=== PATIENT | male | born 1970 | race Caucasian/White ===

== ENCOUNTER 2017-02-15 13:24 | Emergency (ER) | payer OTHER ==
[~2017-02-15] VITALS: Ht 185.4 cm; Wt 117.9 kg
--- NOTE | ~2017-02-15 | EKG ---
[address] [employer] 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 : 1970 Requested By: Ignacia Cano Order Number: [id number] MD: Baldo Mancini Measurements Intervals [place] Rate: 97 P: 38 CA: 154 QRS: -13 QRSD: 87 T: 9 QT: 337 QTc: 428 Interpretive Statements Sinus rhythm Probable left atrial enlargement Low voltage, precordial leads Left ventricular hypertrophy Compared to ECG 02/05/1993 21:22:00 Low QRS voltage now present Sinus tachycardia no longer present Electronically Signed On 02-16-2017 12:49:40 CDT by Baldo Mancini [email or web address] <ELECTRONICALLY SIGNED> By: Baldo Mancini MD 02/16/17 1249 1337 133 Baldo Mancini MD /EPI
[~2017-02-15 13:24] MED LIST: SULFACETAMIDE 115 M1 OP; VICODIN 5-5001 EACH PO
[2017-02-15 14:19] LABS: ABSOLUTE NEUTROPHILS 6.3 thou/uL (1.4-8.2); BASOPHILS 0.6 % (0.0-2.0); EOSINOPHILS 1.1 % (0.0-3.0); HEMATOCRIT 47.3 % (42.0-52.0); HEMOGLOBIN 16.7 gm/dL (14.0-18.0); LYMPHOCYTES 24.3 % (24.0-44.0); MCH 34.6 pg (26.0-34.0); MCHC 35.3 g/dL (28.0-37.0); MCV 97.9 fL (80.0-100.0); MONOCYTES 6.2 % (1.0-8.0); PLATELET COUNT 207 thou/uL (150-400); POLYS 67.8 % (36.0-66.0); RBC 4.83 mil/uL (4.50-6.00); RDW 15.1 % (10.5-14.5); WBC 9.3 thou/uL (4.0-11.0)
[2017-02-15 14:24] LABS: ANION GAP 9 mmol/L (7-16); BUN 6 mg/dL (7-18); CALCIUM 10.2 mg/dL (8.5-10.1); CHLORIDE 100 mmol/L (98-107); CO2 25 mmol/L (21-32); CREATININE 0.8 mg/dL (0.7-1.3); GLUCOSE 95 mg/dL (74-106); POTASSIUM 4.2 mmol/L (3.5-5.1); SODIUM 134 mmol/L (136-145)
[2017-02-15 14:29] LABS: MANUAL DIFF NO
[2017-02-15 14:33] LABS: TROPONIN-I < 0.04 ng/mL (<0.04-0.07)
[2017-02-15 15:27] VITALS: BP 138/93
== END 2017-02-15 15:25 | disposition home or self-care (01) ==
LOC: ER 13:24
PROVIDERS: Emergency Medicine
DX: R53.1 Weakness (principal); R20.0 Anesthesia of skin; R20.2 Paresthesia of skin; F17.210 Nicotine dependence, cigarettes, uncomplicated; F10.99 Alcohol use, unspecified with unspecified alcohol-induced disorder

== ENCOUNTER 2017-09-25 19:06 | Inpatient (IN) | payer OTHER ==
[~2017-09-25] VITALS: Ht 185.4 cm; Wt 109.8 kg
--- NOTE | ~2017-09-25 | EKG ---
[address] [place] [address] ELECTROCARDIOGRAM REPORT Name: BERNARD RED Room #: 203-P ADM IN M.R.#: [id number] Admission: 09/25/17 Attend Phys: Shukri Hodges MD Discharge: Date of : 70 Report #: [id number] THIS REPORT FOR: //name// 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 : 1970 Requested By: Nikhil Grimm Order Number: [id number] MD: Baldo Mancini Measurements Intervals [place] Rate: 76 P: 23 IL: 150 QRS: -12 QRSD: 96 T: 11 QT: 391 QTc: 440 Interpretive Statements Sinus rhythm Low voltage, precordial leads Left ventricular hypertrophy Baseline wander in lead(s) V1 Compared to ECG 02/15/2017 13:37:52 No significant changes Electronically Signed On 09-26-2017 8:53:09 DIRECTOR OF INVESTIGATIONS by Baldo Mancini [email or web address] <ELECTRONICALLY SIGNED> By: Baldo Mancini MD 09/26/17 0853 12 12 Baldo Mancini MD /EPI
--- NOTE | ~2017-09-25 | HC ---
[facility] [place] [address] CONSULTATION Name: BERNARD RED Room #: 203-P [facility] IN M.R.#: [id number] Admission: 09/25/17 Attend Phys: Shukri Hodges MD Discharge: 09/27/17 Date of : 70 Report #: [id number] THIS REPORT FOR: //name// CC: Shukri Hodges [facility] physician/PCP DATE OF SERVICE: 09/27/2017 HISTORY OF PRESENT ILLNESS: This gentleman has been admitted in part for alcohol detoxification. When he presented, he had not had any alcohol in nearly 20 hours. There was concern about comorbid depression and anxiety. He was given Ativan detox and is not having Ativan today, but has still battled insomnia and anxiety a bit. He is hopeful for the future and motivated to put together a plan for sobriety. PAST PSYCHIATRIC HISTORY: The patient has not seen a psychiatrist since he was in grade school. He has, however, seen a therapist at various stretches over the years. He notes that he has been able to sustain nearly several months of sobriety on number of occasions. There is nothing remarkable about his behavior or circumstances over such stretches as he does not remember significant benefit from medication or even attendance in 12 step groups. It would seem that it was a negative event that would sometimes result in the relapse. He has had some trouble with depression and anxiety all the way back to grade school, "before I ever even started using alcohol." More lately though, insomnia has been something that will cause difficulty too when he tries to detox or practise sobriety. FAMILY HISTORY: Notable for depression, anxiety and alcohol use disorder. ALLERGIES: There are no known allergic reaction type allergies. He did have ADVERSE DRUG REACTION TO NALTREXONE and this was not in the context of concurrent use of opioids or drinking alcohol. PAST MEDICAL HISTORY: Secondary to alcoholism. SOCIAL HISTORY: He is newly . He has a girlfriend of a couple of months now, somebody who he is actually known for a number of years. She is also in recovery. She is a motor vehicle representative in pharmacological sales and sounds as though she has been good support and resource for him. He has a young daughter that he wants to provide for. Alcohol is drug of choice, typically could have up to a 12 pack of beer and 10-12 drinks of vodka. MENTAL STATUS EXAM: male, endomorphic build, casually dressed, depressed mood, restricted affect. No involuntary movements. Normal rate and rhythm of speech, he is articulate. No suicidal ideation, no homicidal [facility] [address] [place] [address] CONSULTATION Name: BERNARD RED Room #: 203-P [facility] IN M.R.#: [id number] Admission: 09/25/17 Attend Phys: Shukri Hodges MD Discharge: 09/27/17 Date of : 70 Report #: [id number] ideation, no hallucinations, no delusions. Insight and judgment fair. DIAGNOSES: AXIS: Alcohol use disorder; primary insomnia; major depressive disorder, recurrent, moderate; generalized anxiety disorder, rule out posttraumatic stress disorder. RECOMMENDATIONS: We will use Vistaril for breakthrough anxiety and insomnia. We will start on gabapentin for anxiety and also help with alcohol withdrawal and perhaps alcohol craving. Sertraline will be used for depression and anxiety too. He has had an ADVERSE DRUG REACTION TO REVIA/NALTREXONE. He may be a Campral candidate down the road. It is worth noting that the last time he was on sertraline, he was only on 25 mg. He is welcome to follow up in our office. I have recommended [facility] as an excellent substance abuse counselor. Also, encouraging him to utilize AA and/or other 12 step groups. It is a pleasure to participate in the care of this gentleman with you. <ELECTRONICALLY SIGNED> By: Frank Jarrett MD 11/09/17 0833 [id number] [id number] Frank Jarrett MD /nt
[~2017-09-25 19:06] MED LIST changes: +FLEXERIL PO; +ROXICODONE5 M2 PO
[2017-09-25 19:08] VITALS: BP 148/92
[2017-09-25] MEDS ORDERED: NOHOMEMEDICATIONS (19:19)
[2017-09-25 19:39] LABS: ABSOLUTE NEUTROPHILS 5.6 thou/uL (1.4-8.2); BASOPHILS 1.1 % (0.0-2.0); EOSINOPHILS 0.7 % (0.0-3.0); HEMATOCRIT 46.2 % (42.0-52.0); HEMOGLOBIN 16.3 gm/dL (14.0-18.0); LYMPHOCYTES 22.5 % (24.0-44.0); MCH 33.1 pg (26.0-34.0); MCHC 35.4 g/dL (28.0-37.0); MCV 93.4 fL (80.0-100.0); PLATELET COUNT 174 thou/uL (150-400); POLYS 69.7 % (36.0-66.0); RBC 4.95 mil/uL (4.50-6.00); RDW 17.8 % (10.5-14.5); WBC 8.1 thou/uL (4.0-11.0)
[2017-09-25 19:45] LABS: ANION GAP 12 mmol/L (7-16); BUN 7 mg/dL (7-18); CALCIUM 10.4 mg/dL (8.5-10.1); CHLORIDE 96 mmol/L (98-107); CO2 26 mmol/L (21-32); CREATININE 0.8 mg/dL (0.7-1.3); GLUCOSE 80 mg/dL (74-106); POTASSIUM 3.2 mmol/L (3.5-5.1); SODIUM 134 mmol/L (136-145)
[2017-09-25 19:54] LABS: ALBUMIN 3.7 g/dL (3.4-5.0); MAGNESIUM 1.5 mg/dL (1.8-2.4); SALICYLATE 4.4 mg/dL (2.8-20.0); SGOT 91 U/L (15-37); SGPT 106 U/L (30-65); TOTAL PROTEIN 7.6 g/dL (6.4-8.2); TROPONIN-I < 0.04 ng/mL (<0.06)
[2017-09-25 19:59] LABS: URINE BILIRUBIN NEGATIVE (Negative); URINE BLOOD NEGATIVE (Negative); URINE CLARITY CLEAR; URINE COLOR YELLOW; URINE GLUCOSE-RANDOM* NEGATIVE (Negative); URINE KETONES 2+ (Negative); URINE LEUKOCYTES-REFLEX NEGATIVE (Negative); URINE NITRITE-REFLEX NEGATIVE (Negative); URINE PROTEIN (DIPSTICK) NEGATIVE (Negative); URINE SPECIFIC GRAVITY 1.015 (1.005-1.035); URINE UROBILINOGEN 0.2 E.U./dl (0.2-1.0)
[2017-09-25 20:08] LABS: AMP/METHAMP Negative (Negative); BARBITURATES Negative (Negative); BENZODIAZEPINES Negative (Negative); COCAINE Negative (Negative); METHADONE Negative (Negative); OPIATES Negative (Negative); PCP Negative (Negative)
[2017-09-25 21:52] VITALS: BP 152/92
[2017-09-25 22:00] VITALS: BP 168/101
[2017-09-25 23:47] VITALS: BP 140/90
[2017-09-26 00:43] LABS: POTASSIUM 3.5 mmol/L (3.5-5.1)
[2017-09-26 04:07] VITALS: BP 147/97
[2017-09-26 05:54] LABS: CALCIUM 9.5 mg/dL (8.5-10.1); CREATININE 0.6 mg/dL (0.7-1.3); MAGNESIUM 2.1 mg/dL (1.8-2.4); POTASSIUM 3.7 mmol/L (3.5-5.1)
[2017-09-26 07:11] VITALS: BP 144/95
[2017-09-26 12:09] VITALS: BP 138/92
[2017-09-26 16:25] VITALS: BP 135/100
[2017-09-26 19:09] VITALS: BP 137/99
[2017-09-27 03:46] VITALS: BP 133/94
[2017-09-27 03:53] LABS: ABSOLUTE NEUTROPHILS 3.3 thou/uL (1.4-8.2); BASOPHILS 0.9 % (0.0-2.0); EOSINOPHILS 1.8 % (0.0-3.0); HEMATOCRIT 44.1 % (42.0-52.0); LYMPHOCYTES 31.7 % (24.0-44.0); MCH 32.6 pg (26.0-34.0); MCV 95.7 fL (80.0-100.0); MONOCYTES 4.4 % (1.0-8.0); PLATELET COUNT 130 thou/uL (150-400); POLYS 61.2 % (36.0-66.0); RBC 4.61 mil/uL (4.50-6.00); WBC 5.4 thou/uL (4.0-11.0)
[2017-09-27 04:13] LABS: ALBUMIN 2.7 g/dL (3.4-5.0); CREATININE 0.6 mg/dL (0.7-1.3); MAGNESIUM 1.8 mg/dL (1.8-2.4); POTASSIUM 3.6 mmol/L (3.5-5.1); TOTAL BILIRUBIN 0.9 mg/dL (<0.1-1.0); TOTAL PROTEIN 6.1 g/dL (6.4-8.2)
[2017-09-27 07:28] VITALS: BP 143/102
[2017-09-27 16:11] VITALS: BP 137/91
[2017-09-27 16:41] VITALS: BP 137/91
[2017-09-27] MEDS ORDERED: NEURONTIN 300300 M1 PO (17:09)
[2017-09-27] MEDS ORDERED: ZOLOFT25 MG PO (17:10)
[2017-09-27] MEDS ORDERED: VISTARIL 25 MG25 M1 PO (17:10)
[2017-09-27 17:23] VITALS: BP 137/91
== END 2017-09-27 18:30 | disposition home or self-care (01) | DRG 897 ==
LOC: ER 19:06 → 2N 20:04 → EROBS 20:04 → 2N 21:50 → ENTRNSPT 09-27 17:43 → 2N 09-27 18:30
PROVIDERS: Emergency Medicine; Hospitalist; Nurse Practitioner Acute Care
DX: F10.230 Alcohol dependence with withdrawal, uncomplicated (principal); F33.1 Major depressive disorder, recurrent, moderate; F17.210 Nicotine dependence, cigarettes, uncomplicated; E66.9 Obesity, unspecified; G47.00 Insomnia, unspecified; F41.1 Generalized anxiety disorder; F43.10 Post-traumatic stress disorder, unspecified; E83.42 Hypomagnesemia; E87.6 Hypokalemia; K70.10 Alcoholic hepatitis without ascites; Z68.31 Body mass index [BMI] 31.0-31.9, adult
CPT/HCPCS: 10081

== ENCOUNTER 2018-12-22 11:43 | Emergency (ER) | payer OTHER ==
[~2018-12-22] VITALS: Ht 185.4 cm; Wt 99.8 kg
[~2018-12-22 11:43] MED LIST changes: +NEURONTIN 300300 M1 PO; +NOHOMEMEDICATIONS; +VISTARIL 25 MG25 M1 PO; +ZOLOFT25 MG PO
[2018-12-22 12:18] LABS: ABSOLUTE NEUTROPHILS 6.2 thou/uL (1.4-8.2); BASOPHILS 1.1 % (0.0-2.0); EOSINOPHILS 3.5 % (0.0-3.0); HEMATOCRIT 45.2 % (42.0-52.0); HEMOGLOBIN 15.5 gm/dL (14.0-18.0); MCH 34.4 pg (26.0-34.0); MCHC 34.3 g/dL (28.0-37.0); MCV 100.2 fL (80.0-100.0); MONOCYTES 7.4 % (1.0-8.0); PLATELET COUNT 267 thou/uL (150-400); RBC 4.51 mil/uL (4.50-6.00); RDW 13.4 % (10.5-14.5); WBC 8.7 thou/uL (4.0-11.0)
[2018-12-22 12:18] LABS: URINE BILIRUBIN NEGATIVE (Negative); URINE BLOOD NEGATIVE (Negative); URINE CLARITY CLEAR; URINE COLOR YELLOW; URINE GLUCOSE-RANDOM* NEGATIVE (Negative); URINE KETONES NEGATIVE (Negative); URINE LEUKOCYTES NEGATIVE (Negative); URINE NITRITE NEGATIVE (Negative); URINE PROTEIN (DIPSTICK) NEGATIVE (Negative); URINE UROBILINOGEN 0.2 E.U./dl (0.2-1.0)
[2018-12-22 12:28] LABS: AMP/METHAMP Negative (Negative); BARBITURATES Negative (Negative); BENZODIAZEPINES POSITIVE (Negative); COCAINE Negative (Negative); METHADONE Negative (Negative); OPIATES Negative (Negative); PCP Negative (Negative)
[2018-12-22 12:29] LABS: ANION GAP 9 mmol/L (7-16); BUN 9 mg/dL (7-18); CALCIUM 10.1 mg/dL (8.5-10.1); CHLORIDE 103 mmol/L (98-107); CO2 27 mmol/L (21-32); CREATININE 0.8 mg/dL (0.7-1.3); GLUCOSE 100 mg/dL (74-106); POTASSIUM 4.3 mmol/L (3.5-5.1); SODIUM 139 mmol/L (136-145)
[2018-12-22 12:36] LABS: ALBUMIN 3.4 g/dL (3.4-5.0); SGOT 41 U/L (15-37); SGPT 117 U/L (30-65); TOTAL BILIRUBIN 0.4 mg/dL (<0.1-1.0); TOTAL PROTEIN 6.9 g/dL (6.4-8.2)
[2018-12-22] MEDS ORDERED: LIBRAX CAPSULE1 EACH PO (15:59)
[2018-12-22] MEDS ORDERED: ELIMITE60 GM TOP (16:08)
[2018-12-22 16:37] VITALS: BP 108/75
--- NOTE | 2018-12-22 17:16 | EKG ---
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[place] : 1970 Requested By: Tran Mcduffie Order Number: [id number] MD: Baldo Mancini Measurements Intervals [place] Rate: 111 P: 50 IL: 153 QRS: -19 QRSD: 100 T: 18 QT: 351 QTc: 477 Interpretive Statements Sinus tachycardia Borderline left axis deviation Low voltage, precordial leads Borderline prolonged QT interval Compared to ECG 09/25/2017 19:13:56 Sinus rhythm no longer present Left ventricular hypertrophy no longer present Electronically Signed On 12-22-2018 17:16:40 CDT by Baldo Mancini [email or web address] ��������������������������������������������� <ELECTRONICALLY SIGNED> ���������������������������������������� By: Baldo Mancini MD ��������������������������������������������� 12/22/18 1716 1200 1200 Baldo Mancini MD /SHEYLA
== END 2018-12-22 16:38 | disposition home or self-care (01) ==
LOC: ER 11:43
PROVIDERS: Physician Assistant
DX: F10.239 Alcohol dependence with withdrawal, unspecified (principal); T14.8XXA Other injury of unspecified body region, initial encounter; W57.XXXA Bitten or stung by nonvenomous insect and other nonvenomous arthropods, initial encounter; Y93.89 Activity, other specified; Y92.89 Other specified places as the place of occurrence of the external cause; Y99.8 Other external cause status

== ENCOUNTER 2019-02-20 22:13 | Emergency (ER) | payer OTHER ==
[~2019-02-20] VITALS: Ht 185.4 cm; Wt 95.3 kg
[~2019-02-20 22:13] MED LIST changes: +ELIMITE60 GM TOP; +LIBRAX CAPSULE1 EACH PO
[2019-02-21 07:18] VITALS: BP 142/68
== END 2019-02-21 07:18 | disposition home or self-care (01) ==
LOC: ER 22:13
DX: S40.021A Contusion of right upper arm, initial encounter (principal); F10.129 Alcohol abuse with intoxication, unspecified; S09.90XA Unspecified injury of head, initial encounter; F41.9 Anxiety disorder, unspecified; F32.9 Major depressive disorder, single episode, unspecified; F17.210 Nicotine dependence, cigarettes, uncomplicated; Y04.8XXA Assault by other bodily force, initial encounter; Y93.89 Activity, other specified; Y92.89 Other specified places as the place of occurrence of the external cause; Y99.8 Other external cause status

== ENCOUNTER 2019-02-21 22:40 | Emergency (ER) | payer OTHER ==
[~2019-02-21] VITALS: Ht 185.4 cm; Wt 95.3 kg
[2019-02-22 03:30] VITALS: BP 152/81
== END 2019-02-22 03:30 | disposition home or self-care (01) ==
LOC: ER 22:40
DX: M79.601 Pain in right arm (principal); F10.10 Alcohol abuse, uncomplicated; Y90.9 Presence of alcohol in blood, level not specified; F41.9 Anxiety disorder, unspecified; F32.9 Major depressive disorder, single episode, unspecified; F17.210 Nicotine dependence, cigarettes, uncomplicated

== ENCOUNTER 2019-05-18 22:35 | Emergency (ER) | payer OTHER ==
[~2019-05-18] VITALS: Ht 185.4 cm; Wt 95.3 kg
[2019-05-18 23:37] LABS: URINE BILIRUBIN NEGATIVE (Negative); URINE BLOOD NEGATIVE (Negative); URINE CLARITY CLEAR; URINE COLOR YELLOW; URINE GLUCOSE-RANDOM* NEGATIVE (Negative); URINE KETONES TRACE (Negative); URINE LEUKOCYTES-REFLEX NEGATIVE (Negative); URINE NITRITE-REFLEX NEGATIVE (Negative); URINE PROTEIN (DIPSTICK) NEGATIVE (Negative); URINE UROBILINOGEN 0.2 E.U./dl (0.2-1.0)
[2019-05-18 23:43] LABS: ABSOLUTE NEUTROPHILS 2.5 thou/uL (1.4-8.2); EOSINOPHILS 1.8 % (0.0-3.0); HEMATOCRIT 48.5 % (42.0-52.0); HEMOGLOBIN 16.5 gm/dL (14.0-18.0); LYMPHOCYTES 50.7 % (24.0-44.0); MCH 32.2 pg (26.0-34.0); MCHC 33.9 g/dL (28.0-37.0); MCV 94.9 fL (80.0-100.0); MONOCYTES 5.5 % (1.0-8.0); PLATELET COUNT 253 thou/uL (150-400); RBC 5.11 mil/uL (4.50-6.00); RDW 14.2 % (10.5-14.5)
[2019-05-18 23:48] LABS: ANION GAP 14 mmol/L (7-16); BUN 6 mg/dL (7-18); CALCIUM 8.9 mg/dL (8.5-10.1); CHLORIDE 100 mmol/L (98-107); CO2 24 mmol/L (21-32); CREATININE 0.8 mg/dL (0.7-1.3); GLUCOSE 146 mg/dL (74-106); POTASSIUM 3.7 mmol/L (3.5-5.1); SODIUM 138 mmol/L (136-145)
[2019-05-18 23:52] LABS: AMP/METHAMP Negative (Negative); BARBITURATES Negative (Negative); BENZODIAZEPINES Negative (Negative); COCAINE Negative (Negative); METHADONE Negative (Negative); OPIATES Negative (Negative); PCP Negative (Negative)
[2019-05-18 23:54] LABS: ALBUMIN 3.4 g/dL (3.4-5.0); DIRECT BILIRUBIN 0.1 mg/dL (<0.1-0.3); SGOT 54 U/L (15-37); SGPT 33 U/L (30-65); TOTAL BILIRUBIN 0.4 mg/dL (<0.1-1.0); TOTAL PROTEIN 6.9 g/dL (6.4-8.2); TROPONIN-I <0.06 ng/mL (<0.06)
[2019-05-19 06:04] VITALS: BP 111/73
--- NOTE | 2019-05-19 17:25 | EKG ---
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 RN : 1970 Requested By: Carlos Chamberlain Order Number: [id number] MD: Isiah Roper Measurements Intervals [place] Rate: 102 P: 48 [place]: 154 QRS: -19 QRSD: 94 T: 35 QT: 339 QTc: 442 Interpretive Statements Sinus tachycardia Borderline left axis deviation Abnormal R-wave progression, early transition Compared to ECG 12/22/2018 12:00:02 No significant changes Electronically Signed On 05-19-2019 17:25:09 CDT by Isiah Roper [email or web address] ��������������������������������������������� <ELECTRONICALLY SIGNED> ���������������������������������������� By: Isiah Roper MD, [facility] ��������������������������������������������� 05/19/19 1725 1911 14 Isiah Roper MD, FAC /EPI
== END 2019-05-19 06:00 | disposition home or self-care (01) ==
LOC: ER 22:35
PROVIDERS: Emergency Medicine
DX: F10.10 Alcohol abuse, uncomplicated (principal); F17.210 Nicotine dependence, cigarettes, uncomplicated; F32.9 Major depressive disorder, single episode, unspecified; F41.9 Anxiety disorder, unspecified

== ENCOUNTER 2020-03-11 13:23 | Emergency (ER) | payer OTHER ==
[~2020-03-11] VITALS: Ht 185.4 cm; Wt 111.1 kg
[2020-03-11 14:18] LABS: ABSOLUTE NEUTROPHILS 4.7 thou/uL (1.4-8.2); BASOPHILS 0.9 % (0.0-2.0); EOSINOPHILS 1.6 % (0.0-3.0); HEMATOCRIT 45.4 % (42.0-52.0); HEMOGLOBIN 16.1 gm/dL (14.0-18.0); LYMPHOCYTES 22.1 % (24.0-44.0); MCH 34.2 pg (26.0-34.0); MCHC 35.5 g/dL (28.0-37.0); MCV 96.4 fL (80.0-100.0); PLATELET COUNT 149 thou/uL (150-400); POLYS 68.4 % (36.0-66.0); RBC 4.71 mil/uL (4.50-6.00); RDW 16.1 % (10.5-14.5); WBC 6.9 thou/uL (4.0-11.0)
[2020-03-11 14:33] LABS: CALCIUM 9.8 mg/dL (8.5-10.1); CREATININE 0.8 mg/dL (0.7-1.3); MAGNESIUM 1.8 mg/dL (1.8-2.4); POTASSIUM 3.1 mmol/L (3.5-5.1)
[2020-03-11 15:07] VITALS: BP 140/98
--- NOTE | 2020-03-12 07:51 | EKG ---
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
== END 2020-03-11 15:07 | disposition left against medical advice (07) ==
LOC: ER 13:23
PROVIDERS: Emergency Medicine
DX: F41.0 Panic disorder [episodic paroxysmal anxiety] (principal); R00.2 Palpitations; F32.9 Major depressive disorder, single episode, unspecified; F17.210 Nicotine dependence, cigarettes, uncomplicated

== ENCOUNTER 2020-12-05 21:03 | Emergency (ER) | payer OTHER ==
[~2020-12-05] VITALS: Ht 185.4 cm; Wt 99.8 kg
[2020-12-05] MEDS ORDERED: NOHOMEMEDICATIONS (21:11)
[2020-12-05 22:03] LABS: ABSOLUTE NEUTROPHILS 4.9 thou/uL (1.4-8.2); BASOPHILS 0.6 % (0.0-2.0); EOSINOPHILS 1.4 % (0.0-3.0); HEMATOCRIT 42.5 % (42.0-52.0); HEMOGLOBIN 14.9 gm/dL (14.0-18.0); LYMPHOCYTES 25.1 % (24.0-44.0); MONOCYTES 7.5 % (1.0-8.0); PLATELET COUNT 172 thou/uL (150-400); POLYS 65.4 % (36.0-66.0); RBC 4.38 mil/uL (4.50-6.00); RDW 13.6 % (10.5-14.5); WBC 7.6 thou/uL (4.0-11.0)
[2020-12-05 22:38] LABS: CALCIUM 9.6 mg/dL (8.5-10.1); CREATININE 0.8 mg/dL (0.7-1.3); POTASSIUM 3.5 mmol/L (3.5-5.1)
[2020-12-05 22:44] LABS: ALBUMIN 3.4 g/dL (3.4-5.0); TOTAL BILIRUBIN 1.2 mg/dL (0.2-1.0)
[2020-12-06 02:20] VITALS: BP 107/60
== END 2020-12-06 00:30 | disposition home or self-care (01) ==
LOC: ER 21:03
PROVIDERS: Emergency Medicine
DX: F10.230 Alcohol dependence with withdrawal, uncomplicated (principal); R11.2 Nausea with vomiting, unspecified; F17.210 Nicotine dependence, cigarettes, uncomplicated; Y90.9 Presence of alcohol in blood, level not specified